=== PATIENT | female | born 1935 | race Caucasian/White ===

== ENCOUNTER 2017-07-19 19:35 | Inpatient (IN) | payer MEDICARE, BC ==
[~2017-07-19] VITALS: Ht 160 cm; Wt 59.0 kg
[~2017-07-19 19:35] MED LIST: GLYBURIDE; LOSARTAN PO
--- NOTE | 2017-07-19 19:50 | NUR ---
DR. SULLIVAN AT BEDSIDE FOR MSE.
[2017-07-19] MEDS ORDERED: TIMOLOL MALEATE 0.25% EACHEYE (20:05)
[2017-07-19] MEDS ORDERED: BENZ0.5T3 PO (20:05)
[2017-07-19] MEDS ORDERED: QUET50TA PO (20:05)
[2017-07-19] MEDS ORDERED: GLIP2.5T3 PO (20:05)
[2017-07-19] MEDS ORDERED: BENA10TA2 PO (20:05)
[2017-07-19] MEDS ORDERED: ACET-2154 PO (20:05)
[2017-07-19] MEDS ORDERED: QUET25TA PO (20:05)
[2017-07-19] MEDS ORDERED: DOCU100C36 PO (20:05)
[2017-07-19] MEDS ORDERED: SODI1TAB3 PO (20:09)
[2017-07-19 20:10] LABS: BASOPHILS # (AUTO) 0.1 K/uL (0.0-8.0); EOSINOPHILS # (AUTO) 0.1 K/uL (0.0-0.7); EOSINOPHILS % (AUTO) 1.3 % (0.0-7.0); HEMATOCRIT 30.1 % (31.2-41.9); HEMOGLOBIN 10.3 g/dL (10.9-14.3); LYMPHOCYTES # (AUTO) 1.6 K/uL (20.0-40.0); MEAN CORPUSCULAR HEMOGLOBIN 31.7 uug (24.7-32.8); MEAN CORPUSCULAR HGB CONC 34 g/dL (32.3-35.6); MEAN CORPUSCULAR VOLUME 92.6 fL (75.5-95.3); MONOCYTES # (AUTO) 0.7 K/uL (2.0-10.0); NEUTROPHILS % (AUTO) 73.7 % (38.5-71.5); PLATELET COUNT (AUTO) 295 K/uL (179-408); RED BLOOD CELL COUNT(AUTO) 3.24 MIL/uL (3.63-4.92); WHITE BLOOD COUNT (AUTO) 9.4 K/uL (3.8-11.8)
[2017-07-19 20:16] LABS: ETHANOL < 3 MG/DL (0-0)
[2017-07-19 20:22] LABS: CARBON DIOXIDE 27 mmol/L (21-32); CHLORIDE 106 mmol/L (98-107); CREATININE 1.3 mg/dL (0.6-1.3); GLUCOSE 146 mg/dL (74-106); POTASSIUM 4.1 mmol/L (3.5-5.1); UREA NITROGEN, BLOOD 44 mg/dL (7-18)
[2017-07-19 20:34] LABS: ALANINE AMINOTRANSFERASE 15 U/L (14-59); ALKALINE PHOSPHATASE 87 U/L (50-136); ASPARTATE AMINOTRANSFERASE 17 U/L (15-37); BILIRUBIN,DIRECT 0.1 mg/dL (0.0-0.2); BILIRUBIN,TOTAL 0.3 mg/dL (0.2-1.0); TOTAL PROTEIN, SERUM 6.9 g/dL (6.4-8.2)
[2017-07-19 20:39] LABS: ACETAMINOPHEN < 2.0 ug/mL (10-30)
--- NOTE | 2017-07-19 20:45 | NUR ---
Pt. admitted to MHU , under care of Dr. ZAPATA Belongs List completed.
[2017-07-19 21:27] VITALS: BP 129/75
[2017-07-19] MEDS ORDERED: MAG HYDROX/AL HYDROX/SIMETH 30 ML LIQUID UDC PO PRN (21:30)
[2017-07-19] MEDS ORDERED: MAGNESIUM HYDROXIDE 30 ML LIQUID UDC PO PRN (21:30)
--- NOTE | 2017-07-19 21:41 | NUR ---
Patient arrived on unit A&O x1-2. Patient is slightly agitated following some simple commands, but growing increasingly uncooperative. Vital signs WNL. patient is ambulatory with unsteady gate. Walker & assist. Skin is intact. Contact phone numbers provided are disconnected when called. No distress noted. will continue to monitor closely
[2017-07-19] MEDS: ZOLPIDEM 5 MG TABLET PO PRN (21:57)
[2017-07-19] MEDS ORDERED: ZOLPIDEM 5 MG TABLET ONE (22:08)
[2017-07-19 22:14] VITALS: BP 129/75
[2017-07-19] MEDS ORDERED: DOCUSATE SODIUM 100 MG CAPSULE PO PRN (22:15)
[2017-07-19] MEDS ORDERED: ACETAMINOPHEN 325 MG TABLET PO PRN (22:15)
[2017-07-20 07:30] VITALS: BP 134/66
[2017-07-20] MEDS: glipiZIDE XL 2.5 MG TABCR PO SCH ×2 (09:00→17:00)
[2017-07-20] MEDS: QUETIAPINE FUMARATE 25 MG TABLET PO SCH ×3 (10:02→16:59)
[2017-07-20] MEDS: BENAZEPRIL HCL 10 MG TABLET PO SCH ×2 (10:03→16:59)
[2017-07-20] MEDS: LORAZEPAM 0.5 MG TABLET PO PRN ×2 (10:03→15:50)
--- NOTE | 2017-07-20 13:00 | NUR ---
Received patient sitting in the gerichair in the hallways, restless, tearful, constantly asking to call her family, very confused , agitated at the start of shift, PO PRN ativan 0.5mg was given at 1003, reaassessed in an hour, patient's behavior remains the same, MD aware. Patient ate 100% breakfast and lunch. Will continue to monitor for safety and needs.
[2017-07-20 15:42] LABS: *BILIRUBIN,URIN NEGATIVE (NEGATIVE); *BLOOD, URINE NEGATIVE (NEGATIVE); *CLARITY,URINE SLIGHTLY CLOUDY (CLEAR); *COLOR,URINE YELLOW (YELLOW); *KETONES,URINE TRACE (NEGATIVE); *PROTEIN,URINE NEGATIVE (NEGATIVE); *UROBILINOGEN,URINE 0.2 E.U./dl (NORMAL); LEUKOCYTE ESTERASE ,URINE 2+ (NEGATIVE); NITRITE, URINE NEGATIVE (NEGATIVE); PH,URINE 5.5 (5.0-8.0); UGLUCOSE NEGATIVE (NEGATIVE)
[2017-07-20 16:16] LABS: BACTERIA,URINE MODERATE /HPF (NONE SEEN); RBC,URINE 0-3 /HPF (0-3); SQUAMOUS EPITHELIAL CELL,UR MODERATE /HPF (NONE SEEN); WBC,URINE 20-50 /HPF (0-3)
[2017-07-20 16:19] VITALS: BP 98/62
--- NOTE | 2017-07-20 17:43 | NUR ---
Patient remains extremely restless, confused and disoriented, screaming, crying loud, aggressive, and threatening to hit, PRN ativan 0.5mg PO was given at 1550, reassessed in an hour, patient more calm and redirectable. Will continue to monitor for safety and needs.
[2017-07-20 20:00] VITALS: BP 110/67
[2017-07-20] MEDS ORDERED: QUETIAPINE FUMARATE 25 MG TABLET PO SCH (21:00)
[2017-07-20] MEDS: CEPHALEXIN MONOHYDRATE 500 MG CAPSULE PO SCH (22:55)
[2017-07-21] MEDS: CEPHALEXIN MONOHYDRATE 500 MG CAPSULE PO SCH ×3 (06:00→22:02)
[2017-07-21 07:30] VITALS: BP 118/62
[2017-07-21] MEDS: QUETIAPINE FUMARATE 25 MG TABLET PO SCH ×3 (08:51→17:34)
[2017-07-21] MEDS: glipiZIDE XL 2.5 MG TABCR PO SCH ×2 (08:51→17:33)
[2017-07-21] MEDS: BENAZEPRIL HCL 10 MG TABLET PO SCH ×2 (08:52→17:34)
--- NOTE | 2017-07-21 09:05 | NUR ---
Firearms Report: Electronic Field Service Engineer completed and submitted [employer] Firearms Report on 07/21/17.
[2017-07-21] MEDS: ACETAMINOPHEN 325 MG TABLET PO PRN ×2 (11:20→17:34)
[2017-07-21 16:21] VITALS: BP 140/80
[2017-07-21] MEDS: SODIUM CHLORIDE 1,000 MG TABLET PO SCH (17:34)
[2017-07-21 20:00] VITALS: BP 130/71
[2017-07-21] MEDS ORDERED: QUETIAPINE FUMARATE 25 MG TABLET PO SCH (21:00)
[2017-07-21] MEDS: TIMOLOL MALEATE 0.25% OPHT DR 5 ML BOTTLE EACHEYE SCH (21:02)
[2017-07-21] MEDS: QUETIAPINE FUMARATE 100 MG TABLET PO SCH (21:02)
--- NOTE | 2017-07-21 23:05 | NUR ---
AT APPROX 2150 PATIENT COMPLAINED OF MODERATED LOWER ABDOMINAL PAIN. A BLADDER SCAN WAS DONE AT IT WAS NOTED 895 ML URINE RETENTION. JAMIE HOWELL, WHO WAS THE DOCTOR FOREST LAW AND POLICY PROFESSOR, WAS NOTIFIED AT APPROX 2230 AND NEW ORDER OBTAINED TO INSERT A BRAUN CATHETER, IN-AND-OUT Q6HRS PRN FOR URINARY RETENTION. BRAUN CATHETER WAS INSERTED AT APPROX 2300 AND APPROX 900ML OF URINE WAS TAKEN OUT. WILL CONTINUE TO MONITOR.
[2017-07-22] MEDS: ZOLPIDEM 5 MG TABLET PO PRN (01:17)
--- NOTE | 2017-07-22 01:18 | NUR ---
PATIENT WAS NOTED RESTLESS, HYPERVERBAL, FLIGHT OF IDEAS, CRYING, UNABLE TO SLEEP. AMBIEN 5MG PO PRN WAS GIVEN FOR INSOMNIA. SHE REFUSED TYLENOL 650MG PO PRN FOR PAIN AND DISCOMFORT. WILL CONTINUE TO MONITOR.
[2017-07-22] MEDS: CEPHALEXIN MONOHYDRATE 500 MG CAPSULE PO SCH ×3 (06:00→21:35)
--- NOTE | 2017-07-22 06:50 | NUR ---
PATIENT SLEPT FOR APPROX 3.00HRS THROUGH THE NIGHT. SHE IS REFUSING KEFLEX 500MG PO. WILL CONTINUE TO MONITOR.
[2017-07-22 07:30] VITALS: BP 117/64
[2017-07-22] MEDS: SODIUM CHLORIDE 1,000 MG TABLET PO SCH (08:28)
[2017-07-22] MEDS: QUETIAPINE FUMARATE 25 MG TABLET PO SCH ×3 (08:28→17:12)
[2017-07-22] MEDS: glipiZIDE XL 2.5 MG TABCR PO SCH ×2 (08:28→17:12)
[2017-07-22] MEDS: BENAZEPRIL HCL 10 MG TABLET PO SCH ×2 (08:29→17:00)
[2017-07-22] MEDS: TIMOLOL MALEATE 0.25% OPHT DR 5 ML BOTTLE EACHEYE SCH ×2 (09:00→21:00)
--- NOTE | 2017-07-22 12:05 | NUR ---
Initial Discharge Instructions: Patient currently lives at [facility] [[address] [place] [address]; [phone]]. Spoke with patient's daughter, Fanta ([phone]) who is uncertain if her mother will be able to return to the [facility] and [facility] upon discharge. Spoke with C mobile development manager, Arabella ([phone]) who states she will assess the patient closer to discharge date. SW will speak with pt, family, and MD regarding appropriate discharge plans. SW will form a safe and proper discharge.
[2017-07-22] MEDS: ACETAMINOPHEN 325 MG TABLET PO PRN ×2 (15:13→21:35)
[2017-07-22 15:16] VITALS: BP 92/46
[2017-07-22 19:49] VITALS: BP 96/47
[2017-07-22] MEDS: QUETIAPINE FUMARATE 100 MG TABLET PO SCH (21:35)
[2017-07-22 21:36] VITALS: BP 112/60
--- NOTE | 2017-07-22 22:00 | NUR ---
RECEIVED PATIENT IN THE DAY ROOM. SHE WAS NOTED CONFUSED AND MILDLY AGITATIVE. UPON [facility] MEDICATION ADMINISTRATION, PATIENT TOOK HER PILLS WITH WATER ONE BY ONE; HOWEVER, SHE REFUSED TO TAKE MORE WATER TO FINISHING SWALLOWING HER PILLS. SHE KEEP THEM IN HER MOUTH. MULTIPLE REDIRECTION GIVEN, YET NOT EFFECTIVE, PT CONTINUE REFUSING TO DRINK MORE WATER, THEN FEE MINUTES LATER, SHE SPITS ONE ROUND PILL. PATIENT WAS NOTED EASILY IRRITABLE, AND BELLIGERENT. WILL CONTINUE TO MONITOR.
--- NOTE | 2017-07-22 23:30 | NUR ---
PATIENT IS UP IN A HARVEY CHAIR. SHE IS NOTED CONFUSED, AND IRRITABLE. SHE STATED THAT SHE WANTS TO GO HOME. WHEN ATTEMPTING TO REDIRECTED HER, TRANSFER OR ADMINISTER MEDICATION SHE BECOMES IRRITABLE BELLIGERENT AND COMBATIVE. WILL CONTINUE TO MONITOR
[2017-07-23] MEDS: CEPHALEXIN MONOHYDRATE 500 MG CAPSULE PO SCH ×3 (07:01→22:07)
--- NOTE | 2017-07-23 07:03 | NUR ---
PATIENT SLEPT FOR APPROX 6HRS THROUGH THE NIGHT. SHE DID NOT URINATE DURING THE SHIFT. A BLADDER SCANNER WAS DONE AT SHOWED APPRO. 800ML URINE. A STRAIGHT CATH, IN-AND OUT- WAS DONE AND APPROX 950 ML URINE WAS TAKEN OUT, PATIENT TOLERATED WELL. SHE IS NOW RESTING IN HER BED. WILL CONTINUE TO MONITOR.
[2017-07-23 08:30] VITALS: BP 118/58
[2017-07-23] MEDS: ACETAMINOPHEN 325 MG TABLET PO PRN ×2 (08:56→16:34)
[2017-07-23] MEDS: glipiZIDE XL 2.5 MG TABCR PO SCH ×2 (08:57→16:34)
[2017-07-23] MEDS: SODIUM CHLORIDE 1,000 MG TABLET PO SCH (08:57)
[2017-07-23] MEDS: QUETIAPINE FUMARATE 25 MG TABLET PO SCH ×3 (08:57→16:35)
[2017-07-23] MEDS: TIMOLOL MALEATE 0.25% OPHT DR 5 ML BOTTLE EACHEYE SCH ×2 (08:58→20:38)
[2017-07-23] MEDS: BENAZEPRIL HCL 10 MG TABLET PO SCH ×2 (09:07→16:35)
--- NOTE | 2017-07-23 10:00 | NUR ---
Gps/Drying Machine Receiver- Ambulated patient to the bathroom with front wheel walker, noted diaper wet, good elyse-care encouraged, patient voided adequately not measure, also had a large soft stool Dr Derek Farooq was in to see patient informed of the urinary retention from laft night
[2017-07-23 17:11] VITALS: BP 114/62
[2017-07-23 19:43] VITALS: BP 107/60
[2017-07-23] MEDS: QUETIAPINE FUMARATE 100 MG TABLET PO SCH (20:38)
[2017-07-23 20:50] VITALS: BP 121/57
[2017-07-24] MEDS: CEPHALEXIN MONOHYDRATE 500 MG CAPSULE PO SCH ×3 (06:34→21:36)
[2017-07-24 07:30] VITALS: BP 127/67
[2017-07-24] MEDS: QUETIAPINE FUMARATE 25 MG TABLET PO SCH ×3 (08:55→17:21)
[2017-07-24] MEDS: SODIUM CHLORIDE 1,000 MG TABLET PO SCH (08:55)
[2017-07-24] MEDS: TIMOLOL MALEATE 0.25% OPHT DR 5 ML BOTTLE EACHEYE SCH ×2 (08:55→20:57)
[2017-07-24] MEDS: glipiZIDE XL 2.5 MG TABCR PO SCH ×2 (08:55→17:21)
[2017-07-24] MEDS: ACETAMINOPHEN 325 MG TABLET PO PRN ×2 (08:55→15:39)
[2017-07-24] MEDS: BENAZEPRIL HCL 10 MG TABLET PO SCH ×2 (08:56→16:37)
--- NOTE | 2017-07-24 11:00 | NUR ---
Gps/Shellfish Processing Machine Tender- Patient getting out of her yaneli-chair, very confused, loud, calling out. " i want to get out of here, i want to go home" ,ambulated back to her room, difficulty consoling patient kept getting out of bed, unsteady gait, taken to patio with her group increased agitation noted. Airdox Fitter Jade called Dr Albert, orders received.
[2017-07-24] MEDS: LORAZEPAM 0.5 MG TABLET PO PRN (11:08)
[2017-07-24] MEDS ORDERED: HALOPERIDOL LACTATE 5 MG/1 ML VIAL IM ONE (11:30)
[2017-07-24] MEDS ORDERED: BENZTROPINE MESYLATE 2 MG/2 ML AMPUL IM ONE (11:30)
[2017-07-24 15:00] VITALS: BP 90/51
[2017-07-24 20:01] VITALS: BP 98/55
[2017-07-24] MEDS: QUETIAPINE FUMARATE 100 MG TABLET PO SCH (21:36)
[2017-07-25] MEDS: CEPHALEXIN MONOHYDRATE 500 MG CAPSULE PO SCH (05:52)
--- NOTE | 2017-07-25 06:41 | NUR ---
GPS/EDGE WORKER: REMAIN CALM AND COOPERATIVE WITH MEDICATIONS AND CARE. SLEPT 6 HRS THROUGH THE NIGHT. NO AGITATION NOTED AT THIS TIME. CONTINUE PLAN OF CARE.
[2017-07-25 07:30] VITALS: BP 129/67
[2017-07-25] MEDS: glipiZIDE XL 2.5 MG TABCR PO SCH ×2 (09:00→17:00)
[2017-07-25] MEDS: BENAZEPRIL HCL 10 MG TABLET PO SCH ×2 (09:00→17:00)
[2017-07-25] MEDS: SODIUM CHLORIDE 1,000 MG TABLET PO SCH (09:00)
[2017-07-25] MEDS: TIMOLOL MALEATE 0.25% OPHT DR 5 ML BOTTLE EACHEYE SCH ×2 (09:00→20:03)
[2017-07-25] MEDS: QUETIAPINE FUMARATE 25 MG TABLET PO SCH ×3 (09:00→17:00)
[2017-07-25 15:00] VITALS: BP 131/70
[2017-07-25 20:00] VITALS: BP 118/63
[2017-07-25] MEDS: QUETIAPINE FUMARATE 100 MG TABLET PO SCH (20:03)
[2017-07-25] MEDS: ZOLPIDEM 5 MG TABLET PO PRN (22:17)
[2017-07-26] MEDS: LORAZEPAM 0.5 MG TABLET PO PRN (01:03)
[2017-07-26 07:30] VITALS: BP 116/73
[2017-07-26] MEDS: BENAZEPRIL HCL 10 MG TABLET PO SCH ×2 (08:24→17:02)
[2017-07-26] MEDS: QUETIAPINE FUMARATE 25 MG TABLET PO SCH ×3 (08:24→17:02)
[2017-07-26] MEDS: glipiZIDE XL 2.5 MG TABCR PO SCH ×2 (08:25→17:01)
[2017-07-26] MEDS: SODIUM CHLORIDE 1,000 MG TABLET PO SCH (08:25)
[2017-07-26] MEDS: TIMOLOL MALEATE 0.25% OPHT DR 5 ML BOTTLE EACHEYE SCH ×2 (08:25→20:09)
[2017-07-26 15:00] VITALS: BP 0/0
[2017-07-26 19:30] VITALS: BP 114/60
[2017-07-26] MEDS: QUETIAPINE FUMARATE 100 MG TABLET PO SCH (20:08)
--- NOTE | 2017-07-26 21:36 | NUR ---
PATIENT RECEIVED WITH A 1:1 SITTER FOR SAFETY. PATIENT CONFUSED, DISORGANIZED, AND DISORIENTED. PATIENT HAS POOR IMPULSE CONTROL, POOR INSIGHT, AND POOR JUDGEMENT. PATIENT COMPLAINT WITH MEDICATION. PATIENT REQUIRES FREQUENT PROMPTING, AND REDIRECTION. BED IN LOWEST POSITION, BED LOCKED, AND BED ALARM ON WHILE IN BED. IN NO APPARENT DISTRESS, WILL CONTINUE TO MONITOR. NO AGGRESSIVE OR COMBATIVE BEHAVIOR NOTED, HOWEVER CAN BECOME AGGRESSIVE WHILE PROVIDING CARE WILL CONTINUE TO MONITOR. Addendum: 07/26/17 at 2212 by MERRITT MORTON RN PATIENT RECEIVED IN TORY CHAIR CALM AND COOPERATIVE, PATIENT CONFUSED, DISORIENTED, AND DISORGANIZED. POOR JUDGEMENT, POOR INSIGHT TO CONDITION. PATIENT COMPLAINT WITH MEDICATION. NO AGGRESSIVE OR COMBATIVE BEHAVIOR NOTED WILL CONTINUE TO MONITOR. PATIENT IN NO APPARENT DISTRESS, AND DENIES PAIN AT THIS TIME, WILL CONTINUE TO MONITOR.
[2017-07-27 07:30] VITALS: BP 119/66
[2017-07-27] MEDS: SODIUM CHLORIDE 1,000 MG TABLET PO SCH (08:45)
[2017-07-27] MEDS: QUETIAPINE FUMARATE 25 MG TABLET PO SCH ×3 (08:45→16:07)
[2017-07-27] MEDS: BENAZEPRIL HCL 10 MG TABLET PO SCH ×2 (08:45→16:07)
[2017-07-27] MEDS: glipiZIDE XL 2.5 MG TABCR PO SCH ×2 (08:45→16:07)
[2017-07-27] MEDS: TIMOLOL MALEATE 0.25% OPHT DR 5 ML BOTTLE EACHEYE SCH ×2 (08:45→20:03)
[2017-07-27] MEDS: LORAZEPAM 0.5 MG TABLET PO PRN (12:42)
[2017-07-27 16:31] VITALS: BP 94/62
[2017-07-27 20:00] VITALS: BP 94/61
[2017-07-27] MEDS: QUETIAPINE FUMARATE 100 MG TABLET PO SCH (20:02)
[2017-07-27 20:15] VITALS: BP 105/64
--- NOTE | 2017-07-28 06:16 | NUR ---
GPS: REMAIN CALM AND COOPERATIVE.PATIENT IS CONTINENT. ASSISTED TO USE BATHROOM. PATIENT ONLY GETS ANGRY AND AGITATED WHEN WANTS TO GO TO BATHROOM. SLEPT 5 HRS THROUGH THE NIGHT. SITTING UP IN TORY CHAIR AT THIS TIME.CONTINUE PLAN OF CARE.
[2017-07-28 07:30] VITALS: BP 107/60
[2017-07-28] MEDS: BENAZEPRIL HCL 10 MG TABLET PO SCH ×3 (09:00→16:05)
[2017-07-28] MEDS: TIMOLOL MALEATE 0.25% OPHT DR 5 ML BOTTLE EACHEYE SCH ×2 (09:18→21:16)
[2017-07-28] MEDS: QUETIAPINE FUMARATE 25 MG TABLET PO SCH ×3 (09:18→16:04)
[2017-07-28] MEDS: SODIUM CHLORIDE 1,000 MG TABLET PO SCH (09:19)
[2017-07-28] MEDS: glipiZIDE XL 2.5 MG TABCR PO SCH ×2 (09:19→16:05)
--- NOTE | 2017-07-28 13:00 | NUR ---
Notified JAY Rios about pt having a low b/p from last night and if we can get a parameters for for b/p meds. New order received and carried out.
[2017-07-28] MEDS: ACETAMINOPHEN 325 MG TABLET PO PRN ×2 (16:05→22:57)
[2017-07-28 16:48] VITALS: BP 110/62
--- NOTE | 2017-07-28 17:00 | NUR ---
Patient is confused and disoriented, screaming, yanking on her table aggressively. Pt was getting aggressive with SENIOR FOREMAN and hitting her. Routine seroquel given. Will continue to monitor patient.
[2017-07-28] MEDS: BLOOD SUGAR DIAGNOSTIC 1 EACH STRIP VI SCH (17:28)
--- NOTE | 2017-07-28 18:00 | NUR ---
Pt is in no acute distress. Seroquel effective. Pt more quiet and calm.
[2017-07-28] MEDS: QUETIAPINE FUMARATE 100 MG TABLET PO SCH (21:00)
[2017-07-28] MEDS: Z GUARD REMEDY PASTE 57 GM TUBE TOP SCH (21:16)
[2017-07-28 21:58] VITALS: BP 113/56
--- NOTE | 2017-07-28 23:30 | NUR ---
RECEIVED PT IN THE MAIN HALLWAY SITTING IN A TORY CHAIR. SHE WAS NOTED A/O X 1 CONFUSED, FLIGHT OF IDEAS. FLAT AFFECTED, DEPRESSED MOOD. HOWEVER, COOPERATIVE WITH DIET, MEDICATION REGIMENT AND PLAN OF CARE AT THIS TIME. SEROQUEL 100MG PO QHS WAS HELD DUE TO PATIENT LOW BP: 103/60MMHG AND PULSE 78BPM. TYLENOL 650MG PO PRN FOR BILATERAL KNEE PAIN WAS GIVEN AT 2257. WILL MONITOR FOR EFFICACY.
[2017-07-29 07:30] VITALS: BP 109/67
[2017-07-29] MEDS: BLOOD SUGAR DIAGNOSTIC 1 EACH STRIP VI SCH (07:34)
--- NOTE | 2017-07-29 07:36 | NUR ---
patient slept for approx 7.0 hrs through the night. her BS this AM was 79mg/DL. no aggressive bx noted. patient compliant with medication regiment, diet and plan of care.
[2017-07-29 08:25] LABS: BASOPHILS # (AUTO) 0.1 K/uL (0.0-8.0); EOSINOPHILS # (AUTO) 0.2 K/uL (0.0-0.7); EOSINOPHILS % (AUTO) 4.4 % (0.0-7.0); HEMATOCRIT 26.4 % (31.2-41.9); LYMPHOCYTES # (AUTO) 1.1 K/uL (20.0-40.0); LYMPHOCYTES % (AUTO) 21.1 % (20.5-51.5); MEAN CORPUSCULAR HEMOGLOBIN 31.4 uug (24.7-32.8); MEAN CORPUSCULAR HGB CONC 34 g/dL (32.3-35.6); MEAN CORPUSCULAR VOLUME 92.5 fL (75.5-95.3); MONOCYTES # (AUTO) 0.5 K/uL (2.0-10.0); MONOCYTES % (AUTO) 9.1 % (0.0-11.0); NEUTROPHILS # (AUTO) 3.4 K/uL (1.8-8.9); NEUTROPHILS % (AUTO) 64.4 % (38.5-71.5); PLATELET COUNT (AUTO) 303 K/uL (179-408); RED BLOOD CELL COUNT(AUTO) 2.85 MIL/uL (3.63-4.92); WHITE BLOOD COUNT (AUTO) 5.3 K/uL (3.8-11.8)
[2017-07-29 09:00] VITALS: BP 109/67
[2017-07-29] MEDS: BENAZEPRIL HCL 10 MG TABLET PO SCH (09:00)
[2017-07-29 09:52] LABS: ALANINE AMINOTRANSFERASE 19 U/L (14-59); ALKALINE PHOSPHATASE 71 U/L (50-136); ASPARTATE AMINOTRANSFERASE 21 U/L (15-37); BILIRUBIN,TOTAL 0.4 mg/dL (0.2-1.0); CARBON DIOXIDE 28 mmol/L (21-32); CHLORIDE 108 mmol/L (98-107); CREATININE 0.9 mg/dL (0.6-1.3); GLUCOSE 86 mg/dL (74-106); MAGNESIUM 2.2 mg/dL (1.8-2.4); PHOSPHOROUS 3.8 mg/dL (2.5-4.9); POTASSIUM 4.3 mmol/L (3.5-5.1); TOTAL PROTEIN, SERUM 6.6 g/dL (6.4-8.2); UREA NITROGEN, BLOOD 38 mg/dL (7-18)
[2017-07-29] MEDS: QUETIAPINE FUMARATE 25 MG TABLET PO SCH ×2 (10:00→12:39)
[2017-07-29] MEDS: SODIUM CHLORIDE 1,000 MG TABLET PO SCH (10:02)
[2017-07-29] MEDS: Z GUARD REMEDY PASTE 57 GM TUBE TOP SCH (10:03)
[2017-07-29] MEDS: TIMOLOL MALEATE 0.25% OPHT DR 5 ML BOTTLE EACHEYE SCH (10:03)
[2017-07-29] MEDS: glipiZIDE XL 2.5 MG TABCR PO SCH (10:03)
[2017-07-29] MEDS ORDERED: FUROSEMIDE 20 MG TABLET PO SCH (10:30)
--- NOTE | 2017-07-29 11:17 | NUR ---
DC Note: Patient will be discharged to [facility] [[address] [place] [address]; ] via ambulance at 2pm. Spoke with Derek at the facility who states they are ready to accept the pt today. Spoke with patients daughter, Fanta ([phone]) who is agreeable with discharge plans. Patient is aware and agreeable with discharge plans. Patient will follow-up at the facility with Dr. Quintana (Single Spindle Screw Machine Operator) and Dr. Albert (Psychiatrist).
[2017-07-29 13:39] LABS: THYROID STIMULATING HORMONE 1.829 mIU/mL (0.358-3.740)
--- NOTE | 2017-07-29 16:54 | NUR ---
Patient is oriented to self. vital signs are stable. no agitation. Pt is unable to sign paperwork. Pt is being discharge to [facility] via ambulance. Report was called and given to BRAVO Luna.
[2017-07-30] MEDS ORDERED: POTASSIUM CHLORIDE 10 MEQ CAPSULE.SA PO SCH (08:00)
[2017-07-30] MEDS ORDERED: BENAZEPRIL HCL 10 MG TABLET PO SCH (09:00)
== END 2017-07-29 15:35 | DRG 885 ==
LOC: ER 19:37 → GPS 20:56
PROVIDERS: ADMIT Psychiatry & Neurology Psychosomatic Medicine; ATTEND Internal Medicine
DX: F29 Unspecified psychosis not due to a substance or known physiological condition (principal); F02.81 Dementia in other diseases classified elsewhere, unspecified severity, with behavioral disturbance; N17.0 Acute kidney failure with tubular necrosis; I11.0 Hypertensive heart disease with heart failure; E11.65 Type 2 diabetes mellitus with hyperglycemia; F23 Brief psychotic disorder; E44.0 Moderate protein-calorie malnutrition; N39.0 Urinary tract infection, site not specified; G30.9 Alzheimer's disease, unspecified; I50.9 Heart failure, unspecified; D63.8 Anemia in other chronic diseases classified elsewhere; F32.9 Major depressive disorder, single episode, unspecified; Z79.899 Other long term (current) drug therapy; Z68.23 Body mass index [BMI] 23.0-23.9, adult
CPT/HCPCS: 36415; 70030-TC; 71010; 83735; 84100; 84443; 85025; 85730; 87086; 93005; 97110; 97116; 97530; A4663; C1758; G0480; G0480-TC; J0515; J1630

== ENCOUNTER 2018-12-09 13:45 | Inpatient (IN) | payer MEDICARE, BC ==
[~2018-12-09] VITALS: Ht 157.5 cm; Wt 66.7 kg
[~2018-12-09 13:45] MED LIST changes: +ACET-2154 PO; +BENA10TA9 PO; +DOCU100C36 PO; +GLIP2.5T3 PO; -GLYBURIDE; -LOSARTAN PO; +SODI1TAB3 PO; +TIMOLOL MALEATE 0.25% EACHEYE
[2018-12-09 14:33] LABS: BASOPHILS % (AUTO) 0.6 % (0.0-2.0); EOSINOPHILS # (AUTO) 0.4 K/uL (0.0-0.7); EOSINOPHILS % (AUTO) 6.7 % (0.0-7.0); HEMATOCRIT 29.4 % (31.2-41.9); HEMOGLOBIN 9.7 g/dL (10.9-14.3); LYMPHOCYTES % (AUTO) 17.1 % (20.5-51.5); MEAN CORPUSCULAR HEMOGLOBIN 30.7 uug (24.7-32.8); MEAN CORPUSCULAR HGB CONC 33 g/dL (32.3-35.6); MEAN CORPUSCULAR VOLUME 92.8 fL (75.5-95.3); MONOCYTES # (AUTO) 0.5 K/uL (2.0-10.0); MONOCYTES % (AUTO) 8.2 % (0.0-11.0); NEUTROPHILS % (AUTO) 67.4 % (38.5-71.5); PLATELET COUNT (AUTO) 265 K/uL (179-408); RED BLOOD CELL COUNT(AUTO) 3.17 MIL/uL (3.63-4.92)
[2018-12-09 14:39] LABS: CARBON DIOXIDE 27 mmol/L (21-32); CHLORIDE 107 mmol/L (98-107); CREATININE 1.2 mg/dL (0.6-1.3); GLUCOSE 99 mg/dL (74-106); POTASSIUM 4.4 mmol/L (3.5-5.1); UREA NITROGEN, BLOOD 30 mg/dL (7-18)
[2018-12-09 14:45] LABS: ACETAMINOPHEN < 2.0 ug/mL (10-30); ALANINE AMINOTRANSFERASE 16 U/L (14-59); ALKALINE PHOSPHATASE 180 U/L (50-136); ASPARTATE AMINOTRANSFERASE 12 U/L (15-37); BILIRUBIN,DIRECT 0.1 mg/dL (0.0-0.2); BILIRUBIN,TOTAL 0.2 mg/dL (0.2-1.0); TOTAL PROTEIN, SERUM 6.9 g/dL (6.4-8.2)
[2018-12-09 14:53] LABS: ETHANOL < 3 MG/DL (0-0)
[2018-12-09] MEDS ORDERED: FURO-152 PO (15:00)
[2018-12-09] MEDS ORDERED: MELA3TAB PO (15:00)
[2018-12-09] MEDS ORDERED: QUET50TA PO (15:00)
[2018-12-09] MEDS ORDERED: ASCO500P18 PO (15:00)
[2018-12-09] MEDS ORDERED: QUET100T PO (15:00)
[2018-12-09] MEDS ORDERED: BENA20TA9 PO (15:00)
[2018-12-09] MEDS ORDERED: ESCI5TAB PO (15:00)
[2018-12-09] MEDS ORDERED: MAG355OR18 PO (15:00)
[2018-12-09] MEDS ORDERED: DORZ10DR13 EACHEYE (15:00)
[2018-12-09] MEDS ORDERED: CLON0.5T PO (15:00)
[2018-12-09] MEDS ORDERED: FERR325T24 PO (15:00)
[2018-12-09] MEDS ORDERED: GLIP5TAB13 PO (15:00)
[2018-12-09] MEDS ORDERED: DOCU-141 PO (15:00)
[2018-12-09] MEDS ORDERED: MAGN400O6 PO (15:00)
[2018-12-09] MEDS ORDERED: BIMA2.5D5 EACHEYE (15:00)
[2018-12-09] MEDS ORDERED: MULT-213 PO (15:00)
[2018-12-09] MEDS ORDERED: ACET-2154 PO ×2 (15:00)
--- NOTE | 2018-12-09 15:22 | NUR ---
Transfered to MHU via wheelchair. With no distress noted
[2018-12-09] MEDS ORDERED: ZOLPIDEM 5 MG TABLET PO PRN (15:45)
[2018-12-09] MEDS ORDERED: MAGNESIUM HYDROXIDE 30 ML LIQUID UDC PO PRN ×2 (15:45→20:15)
[2018-12-09] MEDS ORDERED: MAG HYDROX/AL HYDROX/SIMETH 30 ML LIQUID UDC PO PRN ×2 (15:45→20:15)
[2018-12-09 16:00] VITALS: BP 155/72
[2018-12-09 16:22] LABS: *BILIRUBIN,URIN NEGATIVE (NEGATIVE); *BLOOD, URINE NEGATIVE (NEGATIVE); *CLARITY,URINE CLEAR (CLEAR); *COLOR,URINE YELLOW (YELLOW); *KETONES,URINE NEGATIVE (NEGATIVE); *UROBILINOGEN,URINE 0.2 E.U./dl (NORMAL); LEUKOCYTE ESTERASE ,URINE 1+ (NEGATIVE); NITRITE, URINE NEGATIVE (NEGATIVE); PH,URINE 5.5 (5.0-8.0); UGLUCOSE NEGATIVE (NEGATIVE)
[2018-12-09 16:38] LABS: *AMPHETAMINE, URINE NEGATIVE (NEGATIVE); *BARBITURATE, URINE NEGATIVE (NEGATIVE); *CANNABINOID, URINE NEGATIVE (NEGATIVE); *COCCAINE, URINE NEGATIVE (NEGATIVE); *OPIATE, URINE NEGATIVE (NEGATIVE); *PHENCYCLIDINE SCREEN,URINE NEGATIVE (NEGATIVE)
[2018-12-09 16:44] LABS: SQUAMOUS EPITHELIAL CELL,UR FEW /HPF (NONE SEEN)
[2018-12-09 16:45] LABS: MUCUS,URINE MODERATE /LPF (0-FEW)
--- NOTE | 2018-12-09 17:38 | NUR ---
1530 Admitted to MHU a 83 years old female,citizen of [place] national , placed on 5150 for gravely disabled. Patient live in the longterm became delusiona, believing another resident is her .Patient became aggressive to resident and staff caregivers who attempt to redirect her. Patient alert and ox1, anxious, irritable, wanting to go home for waiting for her. Reality orientation provided. Chargenurse notify Dr. Albert of the admission with order and als Dr. velasquez., ladle puller to reconcile medications. Body check done: tiny rashes noted all over back andfront of patient's body.
[2018-12-09] MEDS: diphenhydrAMINE 1% CREAM 28.3 GM TUBE TP PRN (19:50)
[2018-12-09] MEDS ORDERED: ACETAMINOPHEN 325 MG TABLET PO PRN (20:15)
[2018-12-09 20:40] VITALS: BP 159/71
[2018-12-09] MEDS: LATANOPROST OPHT DROP 2.5 ML BOTTLE EACHEYE SCH (20:47)
[2018-12-09] MEDS: BENAZEPRIL HCL 20 MG TABLET PO SCH (20:48)
[2018-12-10 07:21] LABS: BASOPHILS % (AUTO) 0.8 % (0.0-2.0); EOSINOPHILS # (AUTO) 0.4 K/uL (0.0-0.7); EOSINOPHILS % (AUTO) 6.9 % (0.0-7.0); HEMATOCRIT 29.4 % (31.2-41.9); HEMOGLOBIN 9.8 g/dL (10.9-14.3); LYMPHOCYTES # (AUTO) 0.9 K/uL (20.0-40.0); LYMPHOCYTES % (AUTO) 17.1 % (20.5-51.5); MEAN CORPUSCULAR HEMOGLOBIN 30.9 uug (24.7-32.8); MEAN CORPUSCULAR HGB CONC 33 g/dL (32.3-35.6); MONOCYTES # (AUTO) 0.5 K/uL (2.0-10.0); MONOCYTES % (AUTO) 8.2 % (0.0-11.0); NEUTROPHILS # (AUTO) 3.7 K/uL (1.8-8.9); PLATELET COUNT (AUTO) 271 K/uL (179-408); RED BLOOD CELL COUNT(AUTO) 3.16 MIL/uL (3.63-4.92); WHITE BLOOD COUNT (AUTO) 5.6 K/uL (3.8-11.8)
[2018-12-10 07:30] VITALS: BP 153/67
[2018-12-10 08:07] LABS: ALANINE AMINOTRANSFERASE 10 U/L (14-59); ALKALINE PHOSPHATASE 162 U/L (50-136); ASPARTATE AMINOTRANSFERASE 14 U/L (15-37); BILIRUBIN,TOTAL 0.3 mg/dL (0.2-1.0); CARBON DIOXIDE 25 mmol/L (21-32); CHLORIDE 108 mmol/L (98-107); CREATININE 1.1 mg/dL (0.6-1.3); GLUCOSE 95 mg/dL (74-106); MAGNESIUM 2.1 mg/dL (1.8-2.4); POTASSIUM 4.4 mmol/L (3.5-5.1); TOTAL PROTEIN, SERUM 6.7 g/dL (6.4-8.2); UREA NITROGEN, BLOOD 27 mg/dL (7-18)
[2018-12-10] MEDS: ASCORBIC ACID 500 MG TABLET PO SCH (08:32)
[2018-12-10] MEDS: FERROUS SULFATE 325 MG TABEC PO SCH (08:32)
[2018-12-10] MEDS: MULTIVIT, IRON, MIN NO. 8, FA TABLET PO SCH (08:32)
[2018-12-10] MEDS: DOCUSATE SODIUM 100 MG CAPSULE PO SCH (08:32)
[2018-12-10] MEDS: FUROSEMIDE 20 MG TABLET PO SCH (08:32)
[2018-12-10] MEDS: glipiZIDE 5 MG TABLET PO SCH ×2 (08:32→16:00)
[2018-12-10] MEDS: BENAZEPRIL HCL 20 MG TABLET PO SCH ×2 (08:32→20:54)
[2018-12-10] MEDS ORDERED: Medication Not On Formulary EA (Ascorbic Acid (Vitamin C) 500 MG) PO SCH (09:00)
[2018-12-10] MEDS ORDERED: DORZOLAMIDE/TIMOLOL OPHT DROP 10 ML BOTTLE EACHEYE SCH (09:00)
[2018-12-10] MEDS ORDERED: Medication Not On Formulary EA (Multivitamins W-Minerals (Multivitamin With Minerals) 1 PO SCH (09:00)
[2018-12-10] MEDS: GABAPENTIN 100 MG CAPSULE PO SCH ×3 (10:23→16:00)
[2018-12-10] MEDS: QUETIAPINE FUMARATE 25 MG TABLET PO SCH ×3 (10:23→16:00)
[2018-12-10] MEDS: diphenhydrAMINE 1% CREAM 28.3 GM TUBE TP PRN (12:44)
[2018-12-10] MEDS ORDERED: CEPHALEXIN MONOHYDRATE 125 MG/5 ML SUSPENSION 100ML NG SCH (14:00)
[2018-12-10] MEDS: CEphaleXIN 250 MG CAPSULE PO SCH ×2 (15:56→21:00)
[2018-12-10] MEDS: DORZOLAMIDE 2% OPHT DROP 10 ML BOTTLE EACHEYE SCH ×2 (15:56→16:02)
[2018-12-10] MEDS: TIMOLOL MALEATE 0.5% OPHT DROP 5 ML BOTTLE EACHEYE SCH ×2 (15:56→16:02)
[2018-12-10 16:00] VITALS: BP 97/61
[2018-12-10] MEDS ORDERED: BIMATOPROST 0.01% OPHT DROP 2.5 ML BOTTLE EACHEYE SCH (18:00)
[2018-12-10 19:56] VITALS: BP 143/87
[2018-12-10] MEDS: LATANOPROST OPHT DROP 2.5 ML BOTTLE EACHEYE SCH (20:54)
[2018-12-10] MEDS: QUETIAPINE FUMARATE 100 MG TABLET PO SCH (20:54)
[2018-12-11] MEDS: PANTOPRAZOLE SODIUM 40 MG TABLET.DR PO SCH (06:03)
[2018-12-11] MEDS: CEphaleXIN 250 MG CAPSULE PO SCH ×3 (06:03→21:17)
[2018-12-11 07:30] VITALS: BP 156/69
[2018-12-11 07:43] LABS: FERRITIN 74 ng/mL (8-252)
[2018-12-11 07:45] LABS: BASOPHILS % (AUTO) 0.7 % (0.0-2.0); EOSINOPHILS # (AUTO) 0.5 K/uL (0.0-0.7); EOSINOPHILS % (AUTO) 8.2 % (0.0-7.0); HEMATOCRIT 30.1 % (31.2-41.9); LYMPHOCYTES # (AUTO) 1.1 K/uL (20.0-40.0); LYMPHOCYTES % (AUTO) 18.7 % (20.5-51.5); MEAN CORPUSCULAR HEMOGLOBIN 31.1 uug (24.7-32.8); MEAN CORPUSCULAR HGB CONC 33 g/dL (32.3-35.6); MEAN CORPUSCULAR VOLUME 93.3 fL (75.5-95.3); MONOCYTES # (AUTO) 0.5 K/uL (2.0-10.0); MONOCYTES % (AUTO) 8.9 % (0.0-11.0); NEUTROPHILS # (AUTO) 3.6 K/uL (1.8-8.9); NEUTROPHILS % (AUTO) 63.5 % (38.5-71.5); PLATELET COUNT (AUTO) 266 K/uL (179-408); RED BLOOD CELL COUNT(AUTO) 3.23 MIL/uL (3.63-4.92); WHITE BLOOD COUNT (AUTO) 5.6 K/uL (3.8-11.8)
[2018-12-11 07:55] LABS: IRON, SERUM 48 ug/dL (50-175)
[2018-12-11] MEDS: FUROSEMIDE 20 MG TABLET PO SCH (09:47)
[2018-12-11] MEDS: QUETIAPINE FUMARATE 25 MG TABLET PO SCH ×3 (09:47→16:03)
[2018-12-11] MEDS: LORAZEPAM 1 MG TABLET PO PRN (09:47)
[2018-12-11] MEDS: ASCORBIC ACID 500 MG TABLET PO SCH (09:47)
[2018-12-11] MEDS: glipiZIDE 5 MG TABLET PO SCH ×2 (09:48→16:03)
[2018-12-11] MEDS: MULTIVIT, IRON, MIN NO. 8, FA TABLET PO SCH (09:48)
[2018-12-11] MEDS: BENAZEPRIL HCL 20 MG TABLET PO SCH ×2 (09:48→20:52)
[2018-12-11] MEDS: GABAPENTIN 100 MG CAPSULE PO SCH ×3 (09:48→16:03)
[2018-12-11] MEDS: DOCUSATE SODIUM 100 MG CAPSULE PO SCH (09:48)
[2018-12-11] MEDS: FERROUS SULFATE 325 MG TABEC PO SCH (09:48)
[2018-12-11] MEDS: diphenhydrAMINE 1% CREAM 28.3 GM TUBE TP PRN (09:49)
[2018-12-11] MEDS: DORZOLAMIDE 2% OPHT DROP 10 ML BOTTLE EACHEYE SCH ×2 (09:49→16:10)
[2018-12-11] MEDS: TIMOLOL MALEATE 0.5% OPHT DROP 5 ML BOTTLE EACHEYE SCH ×2 (09:49→16:09)
[2018-12-11] MEDS: SERTRALINE HCL 50 MG TABLET PO SCH (13:50)
[2018-12-11 16:00] VITALS: BP 108/49
[2018-12-11 20:17] VITALS: BP 95/50
[2018-12-11] MEDS: QUETIAPINE FUMARATE 100 MG TABLET PO SCH (20:43)
[2018-12-11] MEDS: LATANOPROST OPHT DROP 2.5 ML BOTTLE EACHEYE SCH (20:43)
[2018-12-12] MEDS: CEphaleXIN 250 MG CAPSULE PO SCH ×3 (06:14→20:57)
[2018-12-12] MEDS: PANTOPRAZOLE SODIUM 40 MG TABLET.DR PO SCH (06:14)
--- NOTE | 2018-12-12 07:01 | NUR ---
BP MED HELD LAST NIGHT BP 95/50. SLEPT 10.30 HRS DURING SHIFT. NO AGITATION OBSERVED.
[2018-12-12 07:30] VITALS: BP 128/58
[2018-12-12] MEDS: diphenhydrAMINE 1% CREAM 28.3 GM TUBE TP PRN (08:57)
[2018-12-12] MEDS: TIMOLOL MALEATE 0.5% OPHT DROP 5 ML BOTTLE EACHEYE SCH ×2 (08:57→16:50)
[2018-12-12] MEDS: QUETIAPINE FUMARATE 25 MG TABLET PO SCH ×3 (08:58→16:49)
[2018-12-12] MEDS: DORZOLAMIDE 2% OPHT DROP 10 ML BOTTLE EACHEYE SCH ×2 (08:58→16:50)
[2018-12-12] MEDS: SERTRALINE HCL 50 MG TABLET PO SCH (08:58)
[2018-12-12] MEDS: DOCUSATE SODIUM 100 MG CAPSULE PO SCH (08:58)
[2018-12-12] MEDS: FERROUS SULFATE 325 MG TABEC PO SCH (08:58)
[2018-12-12] MEDS: FUROSEMIDE 20 MG TABLET PO SCH (08:58)
[2018-12-12] MEDS: glipiZIDE 5 MG TABLET PO SCH ×2 (08:58→16:49)
[2018-12-12] MEDS: GABAPENTIN 100 MG CAPSULE PO SCH ×3 (08:58→16:49)
[2018-12-12] MEDS: MULTIVIT, IRON, MIN NO. 8, FA TABLET PO SCH (08:58)
[2018-12-12] MEDS: ASCORBIC ACID 500 MG TABLET PO SCH (08:58)
[2018-12-12] MEDS: BENAZEPRIL HCL 20 MG TABLET PO SCH ×2 (08:59→20:05)
[2018-12-12] MEDS: LORAZEPAM 1 MG TABLET PO PRN ×2 (12:15→18:41)
--- NOTE | 2018-12-12 14:55 | NUR ---
GPS: Nursing Notes: Thought Disorder: Patient is awake and responding to her name, impaired judgment, forgetful, believes that we are not doing anything for her, "I want to go to take care of my .. I need to cook for him..", A/Ox1, redirected and reoriented during shift, episodes of constantly asking the same question, loud and angry when redirected, believes that she is leaving today, unable to formulate a plan for self care, continue with treatment plan.
[2018-12-12 16:00] VITALS: BP 98/55
[2018-12-12] MEDS: ACETAMINOPHEN 325 MG TABLET PO PRN (16:49)
[2018-12-12 20:33] VITALS: BP 102/44
[2018-12-12] MEDS: LATANOPROST OPHT DROP 2.5 ML BOTTLE EACHEYE SCH (20:57)
[2018-12-12] MEDS: QUETIAPINE FUMARATE 100 MG TABLET PO SCH (20:58)
--- NOTE | 2018-12-12 21:58 | NUR ---
Blood pressure 102/44. B/p medication held tonight. Patient in bed no distress noted. Continuing to monitor. Bed alarm on.
[2018-12-13] MEDS: diphenhydrAMINE 1% CREAM 28.3 GM TUBE TP PRN (04:40)
[2018-12-13] MEDS: CEphaleXIN 250 MG CAPSULE PO SCH ×3 (05:54→21:08)
[2018-12-13] MEDS: PANTOPRAZOLE SODIUM 40 MG TABLET.DR PO SCH (06:01)
[2018-12-13] MEDS: LORAZEPAM 1 MG TABLET PO PRN ×2 (07:31→13:26)
[2018-12-13 08:30] VITALS: BP 103/51
[2018-12-13] MEDS: DORZOLAMIDE 2% OPHT DROP 10 ML BOTTLE EACHEYE SCH ×2 (08:48→16:17)
[2018-12-13] MEDS: TIMOLOL MALEATE 0.5% OPHT DROP 5 ML BOTTLE EACHEYE SCH ×2 (08:48→16:17)
[2018-12-13] MEDS: FERROUS SULFATE 325 MG TABEC PO SCH (08:48)
[2018-12-13] MEDS: glipiZIDE 5 MG TABLET PO SCH ×2 (08:48→16:15)
[2018-12-13] MEDS: GABAPENTIN 100 MG CAPSULE PO SCH ×3 (08:48→16:15)
[2018-12-13] MEDS: SERTRALINE HCL 50 MG TABLET PO SCH ×2 (08:48→16:15)
[2018-12-13] MEDS: ACETAMINOPHEN 325 MG TABLET PO PRN ×2 (08:49→16:15)
[2018-12-13] MEDS: QUETIAPINE FUMARATE 25 MG TABLET PO SCH ×3 (08:49→16:15)
[2018-12-13] MEDS: MULTIVIT, IRON, MIN NO. 8, FA TABLET PO SCH (08:49)
[2018-12-13] MEDS: ASCORBIC ACID 500 MG TABLET PO SCH (08:49)
[2018-12-13] MEDS: DOCUSATE SODIUM 100 MG CAPSULE PO SCH (08:49)
[2018-12-13] MEDS: FUROSEMIDE 20 MG TABLET PO SCH (08:49)
[2018-12-13] MEDS: BENAZEPRIL HCL 20 MG TABLET PO SCH ×2 (08:50→20:42)
--- NOTE | 2018-12-13 16:42 | NUR ---
Firearms Report: TONY completed and submitted [employer] Firearms Report for 5250 GD certification.
[2018-12-13 16:48] VITALS: BP 94/54
[2018-12-13 20:22] VITALS: BP 102/60
[2018-12-13] MEDS: LATANOPROST OPHT DROP 2.5 ML BOTTLE EACHEYE SCH (20:38)
[2018-12-13] MEDS: QUETIAPINE FUMARATE 100 MG TABLET PO SCH (20:40)
--- NOTE | 2018-12-13 22:11 | NUR ---
RECEIVED PATIENT IN BED AWAKE AND RESPONSIVE TO HER NAME.SHE WAS NOT IN ACUTE DISTRESS OR PAIN.DENIES AH/SI. COOPERATIVE WITH HIS CARE AND MEDS.WILL CONTINUE WITH MONITORING.
[2018-12-14] MEDS: CEphaleXIN 250 MG CAPSULE PO SCH ×3 (06:25→21:17)
[2018-12-14] MEDS: PANTOPRAZOLE SODIUM 40 MG TABLET.DR PO SCH (06:25)
--- NOTE | 2018-12-14 06:36 | NUR ---
SLEPT FOR APPROXIMATELY 8 HRS.
[2018-12-14 07:45] VITALS: BP 161/53
[2018-12-14] MEDS: LORAZEPAM 1 MG TABLET PO PRN (08:02)
[2018-12-14] MEDS: FERROUS SULFATE 325 MG TABEC PO SCH (08:33)
[2018-12-14] MEDS: MULTIVIT, IRON, MIN NO. 8, FA TABLET PO SCH (08:34)
[2018-12-14] MEDS: GABAPENTIN 100 MG CAPSULE PO SCH ×3 (08:34→16:22)
[2018-12-14] MEDS: FUROSEMIDE 20 MG TABLET PO SCH (08:34)
[2018-12-14] MEDS: BENAZEPRIL HCL 20 MG TABLET PO SCH ×2 (08:34→20:47)
[2018-12-14] MEDS: ASCORBIC ACID 500 MG TABLET PO SCH (08:34)
[2018-12-14] MEDS: QUETIAPINE FUMARATE 25 MG TABLET PO SCH ×3 (08:34→16:22)
[2018-12-14] MEDS: SERTRALINE HCL 50 MG TABLET PO SCH ×2 (08:34→16:23)
[2018-12-14] MEDS: ACETAMINOPHEN 325 MG TABLET PO PRN ×2 (08:34→16:22)
[2018-12-14] MEDS: DOCUSATE SODIUM 100 MG CAPSULE PO SCH (08:34)
[2018-12-14] MEDS: diphenhydrAMINE 1% CREAM 28.3 GM TUBE TP PRN (08:35)
[2018-12-14] MEDS: glipiZIDE 5 MG TABLET PO SCH ×2 (08:35→16:22)
[2018-12-14] MEDS: DORZOLAMIDE 2% OPHT DROP 10 ML BOTTLE EACHEYE SCH ×2 (08:35→16:26)
[2018-12-14] MEDS: TIMOLOL MALEATE 0.5% OPHT DROP 5 ML BOTTLE EACHEYE SCH ×2 (08:35→16:26)
[2018-12-14 17:03] VITALS: BP 94/49
[2018-12-14 20:00] VITALS: BP 98/52
--- NOTE | 2018-12-14 20:00 | NUR ---
RECEIVED PATIENT IN HER ROOM, IN BED SLEEPING, BUT EASILY AROUSABLE. SHE IS NOTED A/O X 1 CALM AND PLEASANT UPON APPROACHED. SHE IS NOTED CONFUSED, FORGETFUL. SHE STATED, "WHEN AM I LEAVING BECAUSE I NEED TO SEE MY MOTHER". IMPAIRED INSIGHT AND JUDGMENT IS NOTED. PATIENT WAS REORIENTED TO TIME PLACE AND SITUATION. SAFETY PRECAUTION IN PLACED. PT IS REASSURED FOR HER SAFETY. WILL CONTINUE TO MONITOR.
[2018-12-14] MEDS: LATANOPROST OPHT DROP 2.5 ML BOTTLE EACHEYE SCH (20:02)
[2018-12-14] MEDS: QUETIAPINE FUMARATE 100 MG TABLET PO SCH (21:00)
--- NOTE | 2018-12-14 22:34 | NUR ---
SEROQUEL 100MG PO QHS WAS HELD D/T DECREASED BLOOD PRESSURE OF 94/49 AND A REPEATED B/P OF 90/50MMHG. PATIENT NOTED CALM, COOPERATIVE AND PLEASANT. ASYMPTOMATIC IN NO DISTRESS AND WITH NO CHANGES IN LOC. WILL CONTINUE TO MONITOR.
[2018-12-15] MEDS: PANTOPRAZOLE SODIUM 40 MG TABLET.DR PO SCH (06:24)
[2018-12-15] MEDS: CEphaleXIN 250 MG CAPSULE PO SCH ×3 (06:24→21:05)
[2018-12-15 07:30] VITALS: BP 150/63
[2018-12-15] MEDS: ASCORBIC ACID 500 MG TABLET PO SCH (08:47)
[2018-12-15] MEDS: MULTIVIT, IRON, MIN NO. 8, FA TABLET PO SCH (08:47)
[2018-12-15] MEDS: QUETIAPINE FUMARATE 25 MG TABLET PO SCH ×3 (08:47→17:46)
[2018-12-15] MEDS: SERTRALINE HCL 50 MG TABLET PO SCH ×2 (08:47→17:51)
[2018-12-15] MEDS: glipiZIDE 5 MG TABLET PO SCH ×2 (08:47→17:46)
[2018-12-15] MEDS: FERROUS SULFATE 325 MG TABEC PO SCH (08:48)
[2018-12-15] MEDS: FUROSEMIDE 20 MG TABLET PO SCH (08:48)
[2018-12-15] MEDS: GABAPENTIN 100 MG CAPSULE PO SCH ×3 (08:48→17:47)
[2018-12-15] MEDS: BENAZEPRIL HCL 20 MG TABLET PO SCH ×2 (08:48→21:05)
[2018-12-15] MEDS: DOCUSATE SODIUM 100 MG CAPSULE PO SCH (08:49)
[2018-12-15] MEDS: DORZOLAMIDE 2% OPHT DROP 10 ML BOTTLE EACHEYE SCH ×2 (08:49→17:53)
[2018-12-15] MEDS: TIMOLOL MALEATE 0.5% OPHT DROP 5 ML BOTTLE EACHEYE SCH ×2 (08:50→17:53)
--- NOTE | 2018-12-15 15:43 | NUR ---
Supportive Counseling: SW met with patient in the hallway. Patient presented confused and mood seemed anxious. Patient inquired about her discharge, and SW provided reassurance, supportive counseling, and reality-orientation to the patient about her discharge plan. Patient expressed relief. SW will continue to be available to provide ongoing support to the patient.
[2018-12-15] MEDS: LORAZEPAM 1 MG TABLET PO PRN (15:58)
[2018-12-15 16:00] VITALS: BP 116/68
[2018-12-15 20:00] VITALS: BP 116/58
[2018-12-15] MEDS: LATANOPROST OPHT DROP 2.5 ML BOTTLE EACHEYE SCH (21:04)
[2018-12-15] MEDS: QUETIAPINE FUMARATE 100 MG TABLET PO SCH (21:05)
--- NOTE | 2018-12-16 04:48 | NUR ---
patient up in hallway and then to bed .med compliant no behavior problems.continue to monitor for safety
[2018-12-16] MEDS: PANTOPRAZOLE SODIUM 40 MG TABLET.DR PO SCH (06:04)
[2018-12-16] MEDS: CEphaleXIN 250 MG CAPSULE PO SCH (06:04)
[2018-12-16 07:30] VITALS: BP 156/77
[2018-12-16] MEDS: glipiZIDE 5 MG TABLET PO SCH ×2 (09:44→17:13)
[2018-12-16] MEDS: DOCUSATE SODIUM 100 MG CAPSULE PO SCH (09:45)
[2018-12-16] MEDS: SERTRALINE HCL 50 MG TABLET PO SCH ×2 (09:45→17:13)
[2018-12-16] MEDS: GABAPENTIN 100 MG CAPSULE PO SCH ×3 (09:45→17:13)
[2018-12-16] MEDS: FERROUS SULFATE 325 MG TABEC PO SCH (09:45)
[2018-12-16] MEDS: QUETIAPINE FUMARATE 25 MG TABLET PO SCH ×3 (09:46→17:13)
[2018-12-16] MEDS: MULTIVIT, IRON, MIN NO. 8, FA TABLET PO SCH (09:46)
[2018-12-16] MEDS: ASCORBIC ACID 500 MG TABLET PO SCH (09:46)
[2018-12-16] MEDS: TIMOLOL MALEATE 0.5% OPHT DROP 5 ML BOTTLE EACHEYE SCH ×2 (09:46→17:12)
[2018-12-16] MEDS: FUROSEMIDE 20 MG TABLET PO SCH (09:46)
[2018-12-16] MEDS: BENAZEPRIL HCL 20 MG TABLET PO SCH ×2 (09:46→20:41)
[2018-12-16] MEDS: DORZOLAMIDE 2% OPHT DROP 10 ML BOTTLE EACHEYE SCH ×2 (09:47→17:12)
[2018-12-16 16:18] VITALS: BP 103/58
[2018-12-16] MEDS: ACETAMINOPHEN 325 MG TABLET PO PRN (16:34)
[2018-12-16] MEDS: diphenhydrAMINE 1% CREAM 28.3 GM TUBE TP PRN (17:18)
[2018-12-16 20:00] VITALS: BP 121/61
[2018-12-16] MEDS: QUETIAPINE FUMARATE 100 MG TABLET PO SCH (20:14)
[2018-12-16] MEDS: LATANOPROST OPHT DROP 2.5 ML BOTTLE EACHEYE SCH (20:15)
[2018-12-17] MEDS: PANTOPRAZOLE SODIUM 40 MG TABLET.DR PO SCH (06:33)
[2018-12-17 07:30] VITALS: BP 111/64
[2018-12-17] MEDS: GABAPENTIN 100 MG CAPSULE PO SCH ×3 (08:39→16:45)
[2018-12-17] MEDS: DOCUSATE SODIUM 100 MG CAPSULE PO SCH (08:39)
[2018-12-17] MEDS: SERTRALINE HCL 50 MG TABLET PO SCH ×2 (08:40→16:45)
[2018-12-17] MEDS: ASCORBIC ACID 500 MG TABLET PO SCH (08:40)
[2018-12-17] MEDS: DORZOLAMIDE 2% OPHT DROP 10 ML BOTTLE EACHEYE SCH ×2 (08:40→16:45)
[2018-12-17] MEDS: BENAZEPRIL HCL 20 MG TABLET PO SCH ×2 (08:40→21:56)
[2018-12-17] MEDS: FERROUS SULFATE 325 MG TABEC PO SCH (08:40)
[2018-12-17] MEDS: MULTIVIT, IRON, MIN NO. 8, FA TABLET PO SCH (08:40)
[2018-12-17] MEDS: FUROSEMIDE 20 MG TABLET PO SCH (08:40)
[2018-12-17] MEDS: glipiZIDE 5 MG TABLET PO SCH ×2 (08:40→16:45)
[2018-12-17] MEDS: QUETIAPINE FUMARATE 25 MG TABLET PO SCH ×2 (08:40→16:45)
[2018-12-17] MEDS: TIMOLOL MALEATE 0.5% OPHT DROP 5 ML BOTTLE EACHEYE SCH ×2 (08:41→16:45)
[2018-12-17 16:00] VITALS: BP 100/51
[2018-12-17 20:36] VITALS: BP 110/52
[2018-12-17] MEDS: QUETIAPINE FUMARATE 100 MG TABLET PO SCH (21:56)
[2018-12-17] MEDS: LATANOPROST OPHT DROP 2.5 ML BOTTLE EACHEYE SCH (21:56)
[2018-12-18] MEDS: PANTOPRAZOLE SODIUM 40 MG TABLET.DR PO SCH (06:23)
[2018-12-18 07:30] VITALS: BP 101/50
[2018-12-18] MEDS: FERROUS SULFATE 325 MG TABEC PO SCH (08:00)
[2018-12-18] MEDS: FUROSEMIDE 20 MG TABLET PO SCH (08:00)
[2018-12-18] MEDS: GABAPENTIN 100 MG CAPSULE PO SCH ×3 (08:00→16:35)
[2018-12-18] MEDS: MULTIVIT, IRON, MIN NO. 8, FA TABLET PO SCH (08:00)
[2018-12-18] MEDS: QUETIAPINE FUMARATE 25 MG TABLET PO SCH ×2 (08:00→16:36)
[2018-12-18] MEDS: glipiZIDE 5 MG TABLET PO SCH ×2 (08:00→16:35)
[2018-12-18] MEDS: DOCUSATE SODIUM 100 MG CAPSULE PO SCH (08:00)
[2018-12-18] MEDS: SERTRALINE HCL 50 MG TABLET PO SCH ×2 (08:00→16:36)
[2018-12-18] MEDS: BENAZEPRIL HCL 20 MG TABLET PO SCH ×2 (08:01→20:05)
[2018-12-18] MEDS: TIMOLOL MALEATE 0.5% OPHT DROP 5 ML BOTTLE EACHEYE SCH ×2 (08:01→16:41)
[2018-12-18] MEDS: DORZOLAMIDE 2% OPHT DROP 10 ML BOTTLE EACHEYE SCH ×2 (08:02→16:40)
[2018-12-18] MEDS: ASCORBIC ACID 500 MG TABLET PO SCH (08:06)
--- NOTE | 2018-12-18 18:40 | NUR ---
EBD IF SHIFT NOTE PATIENT IS ALERT X 1-2, AWAEK, SITTING IN CHAIR, NO ACUTE DISTRESS NOTED, TOLERATED MEALS AND MEDS WELL, NO AGGRESSIVE OR COMBATIVE BEHAVIOUR NOTED DURING SHIFT.
[2018-12-18] MEDS: LATANOPROST OPHT DROP 2.5 ML BOTTLE EACHEYE SCH (20:03)
[2018-12-18] MEDS: QUETIAPINE FUMARATE 100 MG TABLET PO SCH (20:03)
[2018-12-18 21:38] VITALS: BP 149/68
[2018-12-18] MEDS: LORAZEPAM 1 MG TABLET PO PRN (23:28)
--- NOTE | 2018-12-18 23:29 | NUR ---
GPS: Anxious and restless. Pt.keeps looking for her eye glasses. Pt.did not come in with her glasses. Confused,disoriented. Constant re-direction and re-assurance provided by staff. Ativan 1mg PO given prn. Will monitor effectiveness. Fall precautions observed.
[2018-12-19] MEDS: PANTOPRAZOLE SODIUM 40 MG TABLET.DR PO SCH (06:27)
[2018-12-19 07:30] VITALS: BP 129/70
[2018-12-19] MEDS: LORAZEPAM 1 MG TABLET PO PRN (08:12)
[2018-12-19] MEDS: FUROSEMIDE 20 MG TABLET PO SCH (08:12)
[2018-12-19] MEDS: QUETIAPINE FUMARATE 25 MG TABLET PO SCH ×2 (08:12→16:05)
[2018-12-19] MEDS: BENAZEPRIL HCL 20 MG TABLET PO SCH ×2 (08:12→20:04)
[2018-12-19] MEDS: glipiZIDE 5 MG TABLET PO SCH ×2 (08:12→16:05)
[2018-12-19] MEDS: DOCUSATE SODIUM 100 MG CAPSULE PO SCH (08:12)
[2018-12-19] MEDS: GABAPENTIN 100 MG CAPSULE PO SCH ×3 (08:12→16:05)
[2018-12-19] MEDS: FERROUS SULFATE 325 MG TABEC PO SCH (08:12)
[2018-12-19] MEDS: ASCORBIC ACID 500 MG TABLET PO SCH (08:12)
[2018-12-19] MEDS: SERTRALINE HCL 50 MG TABLET PO SCH ×2 (08:12→16:05)
[2018-12-19] MEDS: MULTIVIT, IRON, MIN NO. 8, FA TABLET PO SCH (08:13)
[2018-12-19] MEDS: DORZOLAMIDE 2% OPHT DROP 10 ML BOTTLE EACHEYE SCH ×2 (08:14→16:05)
[2018-12-19] MEDS: TIMOLOL MALEATE 0.5% OPHT DROP 5 ML BOTTLE EACHEYE SCH ×2 (08:14→16:05)
[2018-12-19 16:00] VITALS: BP 104/57
[2018-12-19] MEDS: LATANOPROST OPHT DROP 2.5 ML BOTTLE EACHEYE SCH (20:03)
[2018-12-19] MEDS: QUETIAPINE FUMARATE 100 MG TABLET PO SCH (20:04)
[2018-12-19 21:21] VITALS: BP 110/68
[2018-12-20] MEDS: PANTOPRAZOLE SODIUM 40 MG TABLET.DR PO SCH (06:24)
[2018-12-20 07:30] VITALS: BP 121/60
[2018-12-20 08:37] VITALS: BP 121/60
[2018-12-20] MEDS: DOCUSATE SODIUM 100 MG CAPSULE PO SCH (08:37)
[2018-12-20] MEDS: FERROUS SULFATE 325 MG TABEC PO SCH (08:37)
[2018-12-20] MEDS: GABAPENTIN 100 MG CAPSULE PO SCH ×2 (08:37→13:32)
[2018-12-20] MEDS: MULTIVIT, IRON, MIN NO. 8, FA TABLET PO SCH (08:37)
[2018-12-20] MEDS: FUROSEMIDE 20 MG TABLET PO SCH (08:37)
[2018-12-20] MEDS: QUETIAPINE FUMARATE 25 MG TABLET PO SCH (08:37)
[2018-12-20] MEDS: ASCORBIC ACID 500 MG TABLET PO SCH (08:37)
[2018-12-20] MEDS: glipiZIDE 5 MG TABLET PO SCH (08:37)
[2018-12-20] MEDS: SERTRALINE HCL 50 MG TABLET PO SCH (08:37)
[2018-12-20] MEDS: BENAZEPRIL HCL 20 MG TABLET PO SCH (08:37)
[2018-12-20] MEDS: DORZOLAMIDE 2% OPHT DROP 10 ML BOTTLE EACHEYE SCH (08:38)
[2018-12-20] MEDS: TIMOLOL MALEATE 0.5% OPHT DROP 5 ML BOTTLE EACHEYE SCH (08:38)
--- NOTE | 2018-12-20 10:18 | NUR ---
DC NOTE: Patient will be discharged today back to [facility] [[address] [facility], [place] [address]; ] and transportation will be provided by ambulance at 2:00pm. Please arrange ambulance transportation for this patient. Patient is AxOx1, denies SI/HI, is able to plan for self-care, and is agreeable with discharge plan. sheltered workshop worker has called and left a voicemail for patient daughter, Fanta Silvestre [[phone]], informing her of discharge plan. sheltered workshop worker instructed Fanta to call this property underwriter back prior to 2:00pm should she have any objections to discharge plan. Patient will follow-up with Dr. Quintana (steam tender) and Dr. Albert (psychiatrist) at the facility. Patient has been provided with mental health resources including [facility] Crisis Line [ ], Kelly Gonzalez [ ], and National Suicide Prevention Lifeline [ ].
[2018-12-20] MEDS: ACETAMINOPHEN 325 MG TABLET PO PRN (10:52)
[2018-12-20] MEDS: LORAZEPAM 1 MG TABLET PO PRN (10:52)
--- NOTE | 2018-12-20 14:45 | NUR ---
GPS: Nursing Notes: Discharge Notes: Patient is awake and responding to her name, cooperative with nursing care, compliant with her medications, following staff directions, denies any SI/HI, denies any AH/VH, denies any pain or discomfort, denies any SOB, discharge to [address] [address]; . report given to Isela, RN coin machine supervisor, took all here belongings with her, transported to facility via ambulance. Patient will follow-up with Dr. Quintana (fusion analyst) and Dr. Albert (psychiatrist) at the facility. Patient has been provided with mental health resources including [facility] Crisis Line [ ], Kelly Gonzalez [ ], and National Suicide Prevention Lifeline [ ].
== END 2018-12-20 14:45 | DRG 885 ==
LOC: ER 13:45 → GPS 15:09
PROVIDERS: ADMIT Psychiatry & Neurology Psychiatry; ATTEND Internal Medicine
DX: F29 Unspecified psychosis not due to a substance or known physiological condition (principal); F03.91 Unspecified dementia, unspecified severity, with behavioral disturbance; N39.0 Urinary tract infection, site not specified; I11.9 Hypertensive heart disease without heart failure; E03.9 Hypothyroidism, unspecified; D64.9 Anemia, unspecified; Z86.59 Personal history of other mental and behavioral disorders; Z79.899 Other long term (current) drug therapy; B96.89 Other specified bacterial agents as the cause of diseases classified elsewhere; D63.8 Anemia in other chronic diseases classified elsewhere; R79.89 Other specified abnormal findings of blood chemistry; E78.5 Hyperlipidemia, unspecified; H40.9 Unspecified glaucoma; E11.9 Type 2 diabetes mellitus without complications; L29.9 Pruritus, unspecified; K21.9 Gastro-esophageal reflux disease without esophagitis; I70.0 Atherosclerosis of aorta; F41.8 Other specified anxiety disorders
CPT/HCPCS: 36415; 71045; 80307; 83550; 83735; 84100; 85025; 87086; 93005; 97110; 97116; 97530; A4663; G0480; G0480-TC